=== PATIENT | female | born 1985 | race Two or more races ===

== ENCOUNTER 2021-05-06 11:00 | Emergency (ER) | payer SELFPAY ==
[~2021-05-06] VITALS: Ht 165.1 cm; Wt 65.8 kg
--- NOTE | 2021-05-06 11:24 | NUR ---
To ER bed 9, BIB [facility] c/o lower abd pain x 3 days to site, c/o dysuria, denies n/v/d, aaxo3, denies sob, breathing even and non labored, connected to monitor, awaiting md guerrero
--- NOTE | 2021-05-06 11:57 | NUR ---
LAB AT BEDSIDE FOR BLOOD DRAW
--- NOTE | 2021-05-06 12:16 | NUR ---
URINE COLLECTED AND SENT TO LAB
[2021-05-06 12:19] LABS: BASOPHILS % (AUTO) 0.6 % (0.0-2.0); EOSINOPHILS % (AUTO) 0.6 % (0.0-6.0); HEMATOCRIT 33 % (33-45); HEMOGLOBIN 11.3 g/dL (11.5-14.8); LYMPHOCYTES # (AUTO) 0.9 K/uL (0.8-4.8); LYMPHOCYTES % (AUTO) 14.3 % (20.0-44.0); MEAN CORPUSCULAR HGB CONC 34 g/dl (31.0-36.0); MEAN CORPUSCULAR VOLUME 85 fL (82-100); MONOCYTES # (AUTO) 0.4 K/uL (0.1-1.30); MONOCYTES % (AUTO) 6.6 % (2.0-12.0); NEUTROPHILS % (AUTO) 77.9 % (43.0-81.0); PLATELET COUNT (AUTO) 303 K/uL (150-450); RED BLOOD CELL COUNT(AUTO) 3.95 MIL/uL (4.0-5.2); WHITE BLOOD COUNT (AUTO) 6.4 K/uL (4.3-11.0)
[2021-05-06 13:08] LABS: BILIRUBIN,URINE SMALL (NEGATIVE); COLOR,URINE DARK YELLOW (YELLOW); LEUKOCYTE ESTERASE ,URINE NEGATIVE (NEGATIVE); NITRITE, URINE NEGATIVE (NEGATIVE); PH,URINE 6.5 (5.0-8.0); PROTEIN,URINE TRACE mg/dl (NEGATIVE); UGLUCOSE NEGATIVE (NEGATIVE)
[2021-05-06 13:15] LABS: ALBUMIN 3.4 g/dL (3.4-5.0); BILIRUBIN,DIRECT 0.1 mg/dL (0.0-0.2); BILIRUBIN,TOTAL 0.4 mg/dL (0.2-1.0); CALCIUM, SERUM 9.5 mg/dL (8.5-10.1); CREATININE 0.8 mg/dL (0.6-1.3); POTASSIUM 3.4 mmol/L (3.5-5.1)
[2021-05-06 13:32] LABS: RBC,URINE NONE SEEN /HPF (0-2); SQUAMOUS EPITHELIAL CELL,UR Few /HPF (None Seen); WBC,URINE 0-2 /HPF (0-3)
[2021-05-06 13:33] LABS: BACTERIA,URINE Many /HPF (None Seen); MUCUS,URINE Moderate /LPF (None Seen); URINE AMORPHOUS PHOSPHATES Moderate /HPF (None Seen)
--- NOTE | 2021-05-06 15:00 | NUR ---
[facility] CATH DISCHARGED PER DR APONTE
--- NOTE | 2021-05-06 15:10 | NUR ---
PATIENT REFUSED CT SCAN DESPITE REPEATED REMINDERS
--- NOTE | 2021-05-06 15:35 | NUR ---
PATIENT LEFT AGAINST MEDICAL ADVISED, REFUSED TO SIGN AMA FORM
[2021-05-06 17:13] VITALS: BP 112/70
[2021-05-07] MEDS ORDERED: POLY17PO4 PO (14:26)
== END 2021-05-06 17:15 | disposition left against medical advice (07) ==
LOC: EDBD → ER 11:02
DX: R33.9 Retention of urine, unspecified (principal); R10.30 Lower abdominal pain, unspecified; Z53.29 Procedure and treatment not carried out because of patient's decision for other reasons
CPT/HCPCS: 36415; 80048-TC; 80076-TC; 81001; 83690-TC; 84703-TC; 85025-TC; 87086-TC

== ENCOUNTER 2021-05-07 10:29 | Emergency (ER) | payer SELFPAY ==
[~2021-05-07] VITALS: Ht 165.1 cm; Wt 65.8 kg
[2021-05-07 10:56] VITALS: BP 124/85
[2021-05-07] MEDS ORDERED: POLY17PO4 PO (14:26)
--- NOTE | 2021-05-07 14:38 | NUR ---
Patient discharged in stable condition. Written and verbal after care instructions given. Patient REFUSED TO SIGNED DC PAPERWORK; WITNESSED WITH 2 RNS. PT ambulatory with a steady gait. ESCORTED DC BY SECURITY.
== END 2021-05-07 16:06 | disposition home or self-care (01) ==
LOC: EDBD → MERGE 10:31 → ER 10:31
DX: K59.00 Constipation, unspecified (principal); N20.0 Calculus of kidney; Z59.00 Homelessness unspecified